=== PATIENT | female | born 1965 | race African-American/Black ===

== ENCOUNTER 2018-09-05 22:30 | Emergency (ER) | payer OTHER ==
[~2018-09-05] VITALS: Ht 172.7 cm; Wt 83.0 kg
[2018-09-05] MEDS ORDERED: IV NORMAL SALINE 1,000ML 1,000 ML IV ONE (22:45)
[2018-09-05 23:51] LABS: BASO % 1 % (0-3); EOS # 0.1 x10^3/uL (0.0-0.7); EOS % 2 % (0-3); HEMATOCRIT 37.4 % (36.0-47.0); HEMOGLOBIN 12.3 g/dL (12.0-15.5); LYMPH % 31 % (24-48); MEAN CORPUSCULAR HEMOGLOBIN 31 pg (25-35); MEAN CORPUSCULAR HGB CONC 33 g/dL (31-37); MEAN CORPUSCULAR VOLUME 93 fL (79-100); MONO # 0.5 x10^3/uL (0.0-1.1); MONO % 8 % (0-9); NEUT # 3.7 x10^3uL (1.8-7.7); NEUT % 59 % (31-73); PLATELET COUNT 260 x10^3/uL (140-400); RED BLOOD COUNT 4.02 x10^6/uL (3.50-5.40); RED CELL DISTRIBUTION WIDTH 13.4 % (11.5-14.5); WHITE BLOOD COUNT 6.4 x10^3/uL (4.0-11.0)
[2018-09-05 23:58] LABS: CLARITY,URINE CLEAR; COLOR,URINE YELLOW
[2018-09-05 23:59] LABS: BACTERIA,URINE 0 /HPF (0-FEW); BILIRUBIN,URINE NEG (NEG); GLUCOSE,URINE NEG (NEG); NITRITE,URINE NEG (NEG); RBC,URINE 0 /HPF (0-2); SQUAMOUS EPITHELIAL CELL,UR OCC /LPF; UROBILINOGEN,URINE 0.2 mg/dL (0.2 mg/dL); WBC,URINE OCC /HPF (0-4)
--- NOTE | 2018-09-06 00:04 | PHYS DOC ---
Past History Past Medical History: Hyperthyroid (Grave's Disease) Past Surgical History: Other (Dental Surgery) Smoking: Non-smoker Alcohol Use: None Drug Use: None Adult General Chief Complaint Chief Complaint: Palpitations HPI HPI Patient is a 53-year-old female with a past medical history of Graves' disease presents to the emergency department after experiencing heart palpitations and a burning midsternal chest discomfort while lightly jogging. The patient states she tried to perform a Valsalva maneuver without relief of symptoms. She states that similar episodes have occurred multiple times in the past and usually self resolved after 2-3 hours. She has not taken any medication to relieve her symptoms. She denies any overt chest pain. She denies any nausea, lightheadedness, dizziness, shoulder, or jaw pain. She denies any increase in anxiety. She has never received a stress test or been placed on a heart monitor. She was taken off medication for Graves' disease approximately 8 years ago and denies any recurrence of major hyperthyroid symptoms. She has no other complaints at this time. Review of Systems Review of Systems Constitutional: Denies fever or chills Eyes: Denies redness or eye pain HENT: Denies nasal congestion or sore throat Respiratory: Denies cough or shortness of breath Cardiovascular: Reports palpitations and mild, burning chest discomfort. GI: Denies abdominal pain, nausea, or vomiting : Denies dysuria or hematuria Musculoskeletal: Denies back pain or joint pain Integument: Denies rash or skin lesions Neurologic: Denies headache, focal weakness or sensory changes Complete systems were reviewed and found to be within normal limits, except as documented in this note. Current Medications Current Medications Current Medications Medications (Trade) Dose Ordered Sig/[place] Start Time Stop Time Status Last Admin Dose Admin Sodium Chloride 1,000 ml @ 1,000 mls/hr 1X ONCE 09/05/18 22:45 09/05/18 23:44 UNV 09/05/18 22:45 1,000 MLS/HR Physical Exam Physical Exam Constitutional: Well developed, well nourished, no acute distress, non-toxic appearance Eyes: PERRL, EOMI, conjunctiva normal, no discharge Neck: Normal range of motion, no tenderness, supple Cardiovascular: Tachycardic with irregular rhythm. Lungs & Thorax: Bilateral breath sounds clear to auscultation, no wheezing Abdomen: Soft, no tenderness Skin: Warm, dry, no erythema, no rash Extremities: No tenderness, ROM intact, no edema Neurologic: Alert and oriented X 3, normal motor function, normal sensory function, no focal deficits noted Psychologic: Affect normal, judgement normal, mood normal Current Patient Data Vital Signs Vital Signs Date Time Temp Pulse Resp B/P (MAP) Pulse Ox O2 Delivery O2 Flow Rate FiO2 09/05/18 22:43 97.3 94 20 97 Room Air Lab Results Laboratory Tests Test 09/05/18 23:33 White Blood Count 6.4 x10^3/uL (4.0-11.0) Red Blood Count 4.02 x10^6/uL (3.50-5.40) Hemoglobin 12.3 g/dL (12.0-15.5) Hematocrit 37.4 % (36.0-47.0) Mean Corpuscular Volume 93 fL (79-100) Mean Corpuscular Hemoglobin 31 pg (25-35) Mean Corpuscular Hemoglobin Concent 33 g/dL (31-37) Red Cell Distribution Width 13.4 % (11.5-14.5) Platelet Count 260 x10^3/uL (140-400) Neutrophils (%) (Auto) 59 % (31-73) Lymphocytes (%) (Auto) 31 % (24-48) Monocytes (%) (Auto) 8 % (0-9) Eosinophils (%) (Auto) 2 % (0-3) Basophils (%) (Auto) 1 % (0-3) Neutrophils # (Auto) 3.7 x10^3uL (1.8-7.7) Lymphocytes # (Auto) 2.0 x10^3/uL (1.0-4.8) Monocytes # (Auto) 0.5 x10^3/uL (0.0-1.1) Eosinophils # (Auto) 0.1 x10^3/uL (0.0-0.7) Basophils # (Auto) 0.0 x10^3/uL (0.0-0.2) EKG EKG 09/05/2018 @ 23:25 shows irregular rhythm with no identifiable P waves at [address] elevations present. 09/06/2018 @ 0036: NSR at 77bpm, NO ST elevation, occasional PAC Radiology/Procedures Radiology/Procedures [] Course & Med Decision Making Course & Med Decision Making Patient is a 53-year-old female with a past medical history of Graves' disease who presents with heart palpitations. EKG noted Afib. Due to relatively low heart rate and lack of health risk factors in the patient, electrical cardioversion was elected as the most optimal treatment. Onset of symptoms was at approximately 8:00pm this evening. Last PO was at 9:00pm. Labs obtained and posted to chart. Patient educated as to risks and indications of procedure, and subsequently consented after discussion with her . Patient sedated with 10mg of Etomidate and 100mcg of Fentanyl. Electrical Cardioversion with 50J was successful on first attempt. Subsequent ECG showed normal sinus rhythm at 77bpm. Patient tolerated procedure well. Patient stable for discharge with outpatient follow-up with PCP/cardiology. Cardiology referral provided. Discussed findings and plan with patient and family, who acknowledge understanding and agreement. Dragon Disclaimer Dragon Disclaimer This electronic medical record was generated, in whole or in part, using a voice recognition dictation system. Departure Departure: Impression: Primary Impression: Atrial fibrillation Disposition: 01 HOME, SELF-CARE Condition: IMPROVED Referrals: ADAM RICCI (PCP) ASHLYN ROJAS MD Patient Instructions: Atrial Fibrillation, [id number], Cardioversion, Electrical, Sedation or General Anesthesia, Adult, Care After MODERATE SEDATION ASSESSMENT RISKS/ALTERNATIVES Risks/Alternatives Risks and alternatives of this type of sedation and procedure discussed with: RISK/ALTERNATIVES DISCUSSED: Patient H & P ON CHART H & P H & P on chart and reviewed for co-morbid conditions and appropriate labs. H&P ON CHART: Yes STATUS PREG STATUS ASSESSED: N/A MEDS/ALLERGIES REVIEWED Meds/Allergies Reviewed Medications and Allergies including time and route of recently administered narcotics and sedatives. MEDS/ALLERGIES REVIEWED: Yes ASA RATING ASA RATING: III AIRWAY ASSESSMENT Airway Assessment Airway patency, oral function limitations, presence of caps, crowns, dentures, partials, and ability to extend neck assessed. AIRWAY ASSESSMENT: Yes MALLAMPATI SCORE MALLAMPATI SCORE: II PRE-SEDATION ASSESSMENT PRE-SEDATION PHYSICAL: Yes Cardioversion Indication: Atrial Fibrillation Consent: Written (on chart) Pre-Medication: Etomidate 10mg x 1 and Fentanyl 100mcg x 1 Procedure: The patient was placed in the supine position and the chest area was exposed. The cardioversion pads were applied in the standard manner and configuration. Attempt #1: The defibrillator was set on the sync mode and charged to 50 joules. A charge was then delivered which resulted in a normal sinus rhythm The patient tolerated the procedure well and without difficulty. Complications: None HEART Score for Chest Pain PTs The HEART Score for CP Pts HEART Score for Chest Pain: HEART Score for Chest Pain Response (Comments) Value History Slighlty/Non-Suspicious 0 ECG Normal 0 Age >45 - < 65 1 Risk Factors No Risk Factors 0 Troponin < Normal Limit 0 Total 1 Risk Factors: Risk Factors: DM, Current or recent (<one month) smoker, HTN, HLP, family history of CAD, obesity. Risk Scores: Score 0 - 3: 2.5% MACE over next 6 weeks - Discharge Home Score 4 - 6: 20.3% MACE over next 6 weeks - Admit for Clinical Observation Score 7 - 10: 72.7% MACE over next 6 weeks - Early Invasive Strategies Critical Care Time Critical care time was [30] minutes exclusive of procedures. Problem Qualifiers Primary Impression: Atrial fibrillation Atrial fibrillation type: unspecified Qualified Codes: I48.91 - Unspecified atrial fibrillation SHAHAB LOPEZ DO Sep 06, 2018 00:04
[2018-09-06 00:12] LABS: ALBUMIN 3.7 g/dL (3.4-5.0); CALCIUM 9.1 mg/dL (8.5-10.1); GFR 70.2; POTASSIUM 3.8 mmol/L (3.5-5.1); TOTAL BILIRUBIN 0.2 mg/dL (0.2-1.0); TOTAL PROTEIN 7.4 g/dL (6.4-8.2)
[2018-09-06] MEDS ORDERED: ETOMIDATE 40 MG/20 ML VIAL. IV ONE (00:30)
[2018-09-06] MEDS ORDERED: IV NORMAL SALINE 1,000ML 1,000 ML IV ONE (00:30)
[2018-09-06 01:20] VITALS: BP 124/89
--- NOTE | 2018-09-20 14:23 | EKG ---
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
--- NOTE | 2018-09-20 14:36 | EKG ---
[address] [address] Test Date: 2018-09-06 Test Time: 00:36:49 Pat Name: NIKIA GARCIA Department: Room: Gender: General Manager: : 1965 Requested By: SHAHAB LOPEZ Order Number: [id number] Reading MD: Lee Zhao MD Measurements Intervals [place] Rate: P: SD: QRS: QRSD: T: QT: QTc: Interpretive Statements SR Electronically Signed On 09-29-2018 13:55:34 CDT by Lee Zhao MD
== END 2018-09-06 01:34 | disposition home or self-care (01) ==
LOC: ER 22:30
DX: I48.91 Unspecified atrial fibrillation (principal); E03.9 Hypothyroidism, unspecified; E05.00 Thyrotoxicosis with diffuse goiter without thyrotoxic crisis or storm
CPT/HCPCS: 36415; 80053; 81001; 82553; 83690; 83735; 84443; 84484; 85025; 85610; 85730; 92960; 93005; 99291; J3010; J7030

== ENCOUNTER → 2018-12-13 | Day surgery (SDC) | payer OTHER ==
[~2018-12-13] MED LIST: ACETAMINOPHEN 325 MG TABLET PO PRN; ALBUTEROL SULFATE 2.5 MG/3 ML NEBU. NEB PRN; ASPI325T8 PO; ATROPINE 0.5 MG/5 ML DISP.SYRIN. IV PRN; IV RINGERS SOLUTION,LACTATED 1,000 ML IV SCH; METO25TA4 PO; MIDAZOLAM HCL PF 2 MG/2 ML VIAL. IV PRN; ONDANSETRON PF 4 MG/2 ML VIAL. IV PRN; PHENOL ORAL SPRAY 177ML BOTTLE. MM PRN; PROPOFOL 40 ML IV ONE; diphenhydrAMINE 50 MG/ML VIAL IV PRN
[2018-12-13 12:15] VITALS: BP 139/90
== END ==
LOC: SURG 10:29
PROVIDERS: ATTEND Surgery
DX: Z12.11 Encounter for screening for malignant neoplasm of colon (principal); K63.89 Other specified diseases of intestine; I48.91 Unspecified atrial fibrillation; K31.89 Other diseases of stomach and duodenum; Z98.890 Other specified postprocedural states
CPT/HCPCS: 43239; 45378; J2704; J7120; 45380

== ENCOUNTER → 2018-12-20 | Outpatient (CLI) | payer OTHER ==
[2018-12-13 12:15] VITALS: BP 139/90
[~2018-12-20] MED LIST changes: -ACETAMINOPHEN 325 MG TABLET PO PRN; -ALBUTEROL SULFATE 2.5 MG/3 ML NEBU. NEB PRN; -ATROPINE 0.5 MG/5 ML DISP.SYRIN. IV PRN; -IV RINGERS SOLUTION,LACTATED 1,000 ML IV SCH; -MIDAZOLAM HCL PF 2 MG/2 ML VIAL. IV PRN; -ONDANSETRON PF 4 MG/2 ML VIAL. IV PRN; -PHENOL ORAL SPRAY 177ML BOTTLE. MM PRN; -PROPOFOL 40 ML IV ONE; -diphenhydrAMINE 50 MG/ML VIAL IV PRN
--- NOTE | 2018-12-20 09:37 | CARD ---
MR#: [id number] Date of Study: 12/20/2018 Ordering Physician: ASHLYN ROJAS, Referring Physician: ASHLYN ROJAS, Tech: Inga Corona APPROVED REPORT EXAM: Two-dimensional and M-mode echocardiogram with Doppler and color Doppler. Other Information Quality : GoodHR: 52bpm INDICATION Atrial Fibrillation 2D DIMENSIONS RVDd3.8 (2.9-3.5cm)Left Atrium(2D)3.4 (1.6-4.0cm) IVSd0.8 (0.7-1.1cm)Aortic Root(2D)2.5 (2.0-3.7cm) LVDd4.4 (3.9-5.9cm)LVOT Diameter2.2 (1.8-2.4cm) PWd0.9 (0.7-1.1cm)LVDs2.8 (2.5-4.0cm) FS (%) 37.4 %SV60.5 ml LVEF(%)67.7 (>50%) Aortic Valve AoV Peak North.118.4cm/sAoV VTI27.6cm AO Peak GR.5.6mmHgLVOT Peak North.86.2cm/s LVOT VTI 18.89cmAO Mean GR.3mmHg ANGELIA (VMAX)2.83dh1BBC (VTI)2.51cm2 Mitral Valve MV E Gwioezpc920.1cm/sMV DECEL OIHR610ai MV A Genvjbgy90.5cm/sE/A Ratio1.9 Pulmonary Valve PV Peak Yuhwbche94.4cm/sPV Peak Grad.2mmHg Tricuspid Valve TR P. Hffznkaa569cw/sRAP UAXFIFOX8ijGs TR Peak Gr.36odHaYCUR71ycMq Pulmonary Vein S1 Aqxuyqau52.4cm/sD2 Kqkaiqzk72.9cm/s LEFT VENTRICLE The left ventricle is normal size. There is normal left ventricular wall thickness. The left ventricu lar systolic function is normal. The Ejection Fraction is 60-65%. There is normal LV segmental wall m otion. The left ventricular diastolic function and filling is normal for age. RIGHT VENTRICLE The right ventricle is normal size. There is normal right ventricular wall thickness. The right ventr icular systolic function is normal. ATRIA The left atrium size is normal. The right atrium size is normal. The interatrial septum is intact wit h no evidence for an atrial septal defect or patent foramen ovale as noted on 2-D or Doppler imaging. AORTIC VALVE The aortic valve is normal in structure and function. Doppler and Color Flow revealed no significant aortic regurgitation. There is no significant aortic valvular stenosis. MITRAL VALVE The mitral valve is normal in structure and function. There is no evidence of mitral valve prolapse. There is no mitral valve stenosis. Doppler and Color-flow revealed trace to mild mitral regurgitation . TRICUSPID VALVE The tricuspid valve is normal in structure and function. Doppler and Color Flow revealed trace tricus pid regurgitation with an estimated PAP of 25 mmHg. There is no tricuspid valve stenosis. PULMONIC VALVE The pulmonic valve is not well visualized. Doppler and Color Flow revealed mild pulmonic valvular reg urgitation. GREAT VESSELS The aortic root is normal in size. The IVC is dilated. PERICARDIAL EFFUSION There is no evidence of significant pericardial effusion. Critical Notification Critical Value: No <Conclusion> The left ventricular systolic function is normal. The Ejection Fraction is 60-65%. There is normal LV segmental wall motion. Trace to mild mitral regurgitation. Trace tricuspid regurgitation with an estimated PAP of 25 mmHg. There is no evidence of significant pericardial effusion. Signed by : Zeferino Shaikh, Electronically Approved : 12/20/2018 09:36:27
== END | disposition home or self-care (01) ==
LOC: ECHO 07:48
PROVIDERS: ATTEND Internal Medicine Cardiovascular Disease
DX: I08.8 Other rheumatic multiple valve diseases (principal); I48.0 Paroxysmal atrial fibrillation
CPT/HCPCS: 93306